=== PATIENT | male | born 1980 | race Caucasian/White ===

== ENCOUNTER 2019-09-17 07:56 | Outpatient (CLI) | payer BC, SELFPAY ==
--- NOTE | 2019-09-17 08:06 | MR_ITS ---
WS: [id number] MRI BRAIN WITH AND WITHOUT CONTRAST HISTORY: SEIZURE-LIKE ACTIVITY COMPARISON: None available. TECHNIQUE: Multiplanar imaging performed through the brain with Prohance 15 ml's IV. No acute infarcts are seen. Clement-white matter differentiation is well preserved. High-resolution imag ing to the temporal lobes demonstrates no atrophy or sclerosis. Temporal lobes and hippocampal format ions are symmetric bilaterally. No susceptibility artifacts or prior lacunar infarcts. Ventricles and extra-axial spaces are normal. Clivus and pituitary gland are normal. Visualized posterior fossa and brainstem are also normal. Postcontrast images are negative for masses or vascular malformations. Dural venous sinuses are normal. Paranasal sinuses: Small polyps or mucous retention cyst in the floor of the sphenoid sinus. No air-f luid levels. Mastoid air cells: Normal. Calvarium and scalp: Normal. MR/MR head wo/w con [id number] IMPRESSION: 1. Negative MRI brain for mass or hippocampal formation abnormalities. 2. No prior hemorrhage or infarcts.
== END 2019-09-17 07:57 | disposition home or self-care (01) ==
LOC: RADSHAW 08:00
PROVIDERS: Visit Provider Family Medicine
DX: R56.9 Unspecified convulsions (principal)
CPT/HCPCS: 70553; A9579

== ENCOUNTER → 2019-09-27 07:54 | Outpatient (BNVA) | payer BC, SELFPAY | PROVIDERS: PCP Nurse Practitioner; Referring Provider Nurse Practitioner; Visit Provider Specialist | DX: G40.909 Epilepsy, unspecified, not intractable, without status epilepticus (principal) | CPT/HCPCS: 95816 ==

== ENCOUNTER 2020-06-28 10:54 | Emergency (ER) | payer BC, SELFPAY ==
[2020-06-28 11:27] VITALS: BP 138/95; PULSE 72; RESP 16; TEMP 36.6; O2SAT 98; BMI 19.5
--- NOTE | 2020-06-28 11:52 | W.ED.EYEPROB ---
HPI - Eye Problem General: Chief complaint: Eye Problems Stated complaint: r eye pain/injury Time Seen by Provider: 06/28/20 11:38 History of Present Illness: HPI Narrative: 39-year-old male comes in a sensation of a foreign body in his right eye. His primary other metal frame thinks he got a piece of metal behind his safety glasses its been irritating him since last night. He has tried to flush his eye without success. He denies any difficulty with vision. chief complaint: eye pain and foreign body Onset (ago): day(s) (1) Onset description: sudden Duration: constant Location: right eye Eye Symptoms: burning, redness, pain and foreign body sensation Place: home Mechanism: occurred while hammering/grinding Severity: moderate Associated symptoms: Denies fever(s), nausea or vomiting Treatments Prior to Arrival: irrigated eye and other (Attempted to remove foreign body) Review of Systems Const: Denies: fever(s), chills, body aches, change in appetite, fatigue or malaise Resp: Denies: dyspnea, productive cough or non-productive cough GI: Denies: abdominal pain, nausea, vomiting, hematemesis, coffee ground emesis, diarrhea, constipation, bloating, hematochezia or melena Physical Exam Const: COMMON NORMALS: no acute distress GENERAL APPEARANCE: cooperative and comfortable ORIENTATION/CONSCIOUSNESS: Yes awake, Yes oriented to person, Yes oriented to place and Yes oriented to time HENMT: COMMON NORMALS: normocephalic, atraumatic, hearing grossly normal bilaterally, external ears normal, EAC's normal, TM's normal bilaterally, Normal nasal mucous membranes and turbinates present, moist oral mucous membranes and oropharynx normal HEAD & SCALP: normocephalic and atraumatic NOSE: Normal nasal mucous membranes and turbinates present EXTERNAL EAR: Yes external ears normal EXTERNAL AUDITORY CANAL: EAC's normal TYMPANIC MEMBRANE: TM's normal bilaterally Eye: OTHER: Patient has a grossly visible foreign body in the cornea at the 1 to 2 o'clock position. Fluorescein dye applied Wood lamp's used after it topical anesthetic with tetracaine. There is some abrasion to the cornea and to the sclera is from irritation that increased dye uptake is noted. Using a cotton swab was unable to get the foreign body out it appears that is already healed over. Fluorescein dye washed out with saline eyewash. Neck/C-Spine: COMMON NORMALS: no JVD Resp: COMMON NORMALS: normal respiratory effort, No retractions, No use of accessory muscles and clear to auscultation bilaterally AUSCULTATION: clear to auscultation bilaterally Cardio: COMMON NORMALS: no JVD, regular rate, regular rhythm and No murmurs present (Cardio) RATE: regular rate RHYTHM: regular rhythm Neuro: SENSORIUM/ORIENTATION: Yes oriented to person, Yes oriented to place and Yes oriented to time Course Vital Signs: Vital signs: Vital Signs Temperature 97.9 F 06/28/20 12:13 Pulse Rate 72 06/28/20 11:27 Respiratory Rate 16 06/28/20 12:13 Blood Pressure 138/95 06/28/20 11:27 Pulse Oximetry 98 06/28/20 12:13 MDM - Eye Problem MDM Narrative: Medical decision making narrative: Mariia Huertas is on-call discussed with him. Will discharge patient from the ER to his office he has appropriate equipment there for removal of foreign body. The patient's tetanus was updated while he was here. Discharge Plan Discharge Patient Disposition: Home Clinical Impression: Corneal foreign body Condition: Stable Discharge Orders: Discharge Order (Routine); Ordered 06/28/20 Ordered By: Shakeel Downey Referrals: Sarah Garcia, [facility] [Primary Care Provider] - Activity Restrictions/Additional Instructions: Your tetanus was updated during this visit. Dr. Huertas will meet you at his office at 1230 today. Discharge Date/Time: 06/28/20 12:14 Coding Level of Care Code ED Clinical Laboratory Director for Omar Gore
[2020-06-28] MEDS: eye irrigation 30 mL Btl EYE-RIGHT (12:02)
[2020-06-28] MEDS: tetanus-dipt-pertussis 0.5 mL SDV IM (12:02)
[2020-06-28] MEDS: fluorescein 1 mg Strip EYE-RIGHT (12:02)
[2020-06-28] MEDS: tetracaine 0.5% Op Soln 4 mL Btl 1 DROP EYE-RIGHT (12:02)
[2020-06-28 12:13] VITALS: RESP 16; TEMP 36.6; O2SAT 98
== END 2020-06-28 12:14 | disposition home or self-care (01) ==
PROVIDERS: Emergency Provider Family Medicine; PCP Nurse Practitioner
DX: T15.01XA Foreign body in cornea, right eye, initial encounter (principal); X58.XXXA Exposure to other specified factors, initial encounter; Z23 Encounter for immunization
CPT/HCPCS: 12345; 90471; 90715; 99282; 99283